=== PATIENT | male | born 1970 | race Caucasian/White ===

== ENCOUNTER → 2020-12-26 | Outpatient (CLI) | payer OTHER | LOC: KOH-I 08:58 | DX: J32.9 Chronic sinusitis, unspecified (principal) | CPT/HCPCS: 70486 ==

== ENCOUNTER → 2021-02-20 | Day surgery (SDC) | payer OTHER ==
[~2021-02-20] MED LIST: BUPRENORPHIN-N1 EACH SL; CLINDAMYCIN HC300 MG PO; GABAPENTIN300 MG PO; HYDROCODONE-AC1 EACH PO
== END | disposition home or self-care (01) ==
LOC: OR 05:55
DX: J32.9 Chronic sinusitis, unspecified (principal); J34.2 Deviated nasal septum; J34.3 Hypertrophy of nasal turbinates; Z20.822 Contact with and (suspected) exposure to COVID-19
CPT/HCPCS: 87070; 87077; 87186; 87205; C1726; J0171; J1100; J2001; J2250; J2405; J2704; J2710; J3010; J7030; J7120; U0002